=== PATIENT | female | born 2000 | race Caucasian/White ===

== ENCOUNTER 2023-09-06 09:57 | Emergency (ER) | payer MEDICAID ==
[~2023-09-06] VITALS: Ht 160 cm; Wt 54.4 kg
[2023-09-06 10:08] VITALS: BP_SYST 124; PULSE 118; RESP 20; TEMP 99; O2SAT 98
[2023-09-06 10:28] VITALS: BP_SYST 124; PULSE 118; RESP 20; TEMP 99; O2SAT 98
[2023-09-06] MEDS ORDERED: LIDOCAINE 1%, 20 ML MDV 20 ML ONE (10:33)
== END 2023-09-06 11:28 | disposition left against medical advice (07) ==
LOC: SED 09:57
DX: S61.412A Laceration without foreign body of left hand, initial encounter (principal); Z79.899 Other long term (current) drug therapy; W25.XXXA Contact with sharp glass, initial encounter; Y93.89 Activity, other specified; Y92.89 Other specified places as the place of occurrence of the external cause; Y99.8 Other external cause status
CPT/HCPCS: 99281; J2001